=== PATIENT | female | born 1975 | race Caucasian/White ===

== ENCOUNTER 2016-05-19 05:29 | Observation (INO) | payer OTHER ==
[~2016-05-19] VITALS: Ht 149.9 cm; Wt 47.2 kg
[~2016-05-19 05:29] MED LIST: AMIT10TA6 PO; CETI10 PO; CHOL1CAP8 PO; DICY10CA12 PO; MULT-135 PO; OMEP20TA PO; VARE1 PO
[2016-05-19] MEDS ORDERED: SODIUM CHLORID 0.9% 500 ML IV SCH (06:00)
[2016-05-19] MEDS ORDERED: METOPROLOL TARTRATE 25 MG TAB PO PRN (06:00)
[2016-05-19] MEDS ORDERED: INSULIN HUMAN REGULAR 1,000 UNITS/10 ML VIAL SQ PRN (06:00)
[2016-05-19] MEDS ORDERED: LACTATED RINGER'S 1000 ML IV SCH (06:00)
[2016-05-19] MEDS ORDERED: ceFAZolin 2 GM PREMIX 50 ML IV SCH (06:15)
[2016-05-19 06:25] VITALS: BP 110/67; PULSE 77; RESP 16; TEMP 97.9; O2SAT 100
--- NOTE | 2016-05-19 06:28 | MH ---
cc: ETHEL NICOLE DATE OF ADMISSION: 05/19/2016 DATE OF 1975 DATE OF SURGERY Scheduled for 05/19/2016 HISTORY AND PHYSICAL This is a 41-year-old white female who is a 5, para 3 who has had vaginal births and C-sections. The patient is scheduled for a laparoscopic-assisted vaginal hysterectomy with bilateral salpingectomy and removal of one or both ovaries. The patient has pelvic congestion syndrome and will have her ovary removed to try to minimize her remaining pelvic congestion. The patient is aware of the risks, benefits and alternatives. She understands that if both ovaries are removed she will be menopausal, so our goal would be to remove one ovary unless necessary. The patient had a history of a LEEP and abnormal Pap smear, will need a cervix removed during this case. The patient is aware of that. The patient's COB SAWYER history is significant for an abnormal Pap smears in 2015. OBSTETRICAL HISTORY She has had five pregnancies with two full-term and one delivery. She had a in 2004 and 2005 and one vaginal . MEDICATIONS Omeprazole 20 milligrams daily. Amitriptyline 10 milligrams daily Dicyclomine 10 milligrams daily. ALLERGIES ALLERGIES TO MORPHINE, CAUSES VOMITING AND HIVES. SOCIAL HISTORY She does not smoke, drink or use drugs. PHYSICAL EXAMINATION VITAL SIGNS: Stable and afebrile. NECK: Thyroid palpably normally. HEART: Regular rate and rhythm without murmur or gallop. LUNGS: Clear to auscultation bilaterally. ABDOMEN: Soft, nontender, nondistended. Nongravid uterus, 7-week size. : Urethra and anus appeared normal. LOWER EXTREMITIES: No edema. IMPRESSION/PLAN Our impression at this time is pelvic congestion syndrome with severe pelvic pain. The patient will undergo a LAVH, bilateral salpingectomy and removal of one or both ovaries. The patient fully consented. MD SCARLETT Verma/GLENDA /7:40 PM 6:27 AM
[2016-05-19 06:56] LABS: AUTOMATED NEUTROPHIL # 5.7 TH/MM3 (1.8-7.7); BASOPHIL % 0.5 % (0.0-2.0); EOSINOPHIL # 0.2 TH/MM3 (0-0.4); EOSINOPHIL % 2.1 % (0.0-4.0); HEMO FLAGS DIFF FINAL; LYMPH % 17.2 % (9.0-44.0); LYMPHOCYTE # 1.3 TH/MM3 (1.0-4.8); MEAN CELL VOLUME 92.6 FL (80.0-100.0); MEAN CORPUSCULAR HEMOGLOBIN 32.2 PG (27.0-34.0); MEAN CORPUSCULAR HGB CONC 34.8 % (32.0-36.0); MONO % 6.5 % (0.0-8.0); NEUT % 73.7 % (16.0-70.0); PLATELET COUNT 156 TH/MM3 (150-450); RED BLOOD COUNT 3.88 MIL/MM3 (4.00-5.30); RED CELL DISTRIBUTION WIDTH 12.9 % (11.6-17.2); WHITE BLOOD COUNT 7.8 TH/MM3 (4.0-11.0)
[2016-05-19] MEDS ORDERED: METHYLENE BLUE 10 MG/ML VIAL ONE (07:00)
[2016-05-19] MEDS ORDERED: LIDOCAINE 1%/EPINEPHrine 1:100,000 SOLN 30 ML VIAL ONE (07:00)
[2016-05-19] MEDS ORDERED: APREPITANT 40 MG CAP PO ONE (07:15)
[2016-05-19] MEDS ORDERED: FAMOTIDINE 20 MG/2 ML VIAL IV ONE (07:15)
[2016-05-19] MEDS ORDERED: MIDAZOLAM HCL 2 MG/2 ML VIAL IV ONE (07:15)
[2016-05-19 07:21] LABS: BETA HCG QUANT LESS THAN 1 MIU/ML (0-5)
[2016-05-19] MEDS ORDERED: DO NOT ADM ANY ANTICOAGULANT DRUGS XX PRN (09:45)
[2016-05-19] MEDS ORDERED: SODIUM CHLORIDE 0.9% FLUSH 5 ML FLUSH FLUSH PRN (10:00)
[2016-05-19] MEDS ORDERED: diphenhydrAMINE HCL 25 MG CAP PO PRN (10:00)
[2016-05-19] MEDS ORDERED: oxyCODONE/ACETAMINOPHEN 5 MG/325 MG TAB PO PRN ×2 (10:00)
[2016-05-19] MEDS ORDERED: HYDROmorphone HCL PF 1 MG/ML VIAL IVP PRN (10:00)
--- NOTE | 2016-05-19 10:00 | PD.OP ---
Operative Report Date of Surgery: May 19, 2016 Preoperative Diagnosis: (1) Pelvic congestion syndrome Postoperative Diagnosis: (1) Pelvic congestion syndrome Procedure: LAVH RSO and left salpingectomy Anesthesia: general Juarez Surgeon: Popeye Melo Mercerizing Range Controller(s): Popeye Peterson MD May 19, 2016 10:00
[2016-05-19] MEDS ORDERED: *HYDROmorphone PF 1 MG VIAL PERIprocedural Use ONLY ONE ×2 (10:05→10:37)
[2016-05-19] MEDS ORDERED: fentaNYL CITRATE 250 MCG/5 ML AMP IV ONE (12:00)
[2016-05-19] MEDS ORDERED: KETOROLAC TROMETHAMINE 30 MG/ML (IVP) VIAL IV PUSH ONE (12:00)
[2016-05-19] MEDS ORDERED: LACTATED RINGER'S 1000 ML INJ 1,000 ML IV ONE (12:00)
[2016-05-19] MEDS ORDERED: ACETAMINOPHEN 1000 MG/100 ML VIAL IV ONE (12:00)
[2016-05-19] MEDS ORDERED: NEOSTIGMINE 3 MG/3 ML SYR IV ONE (12:00)
[2016-05-19] MEDS ORDERED: ONDANSETRON HCL 4 MG/2 ML VIAL IV PUSH ONE (12:00)
[2016-05-19] MEDS ORDERED: PROPOFOL 200 MG/20 ML AMP IV ONE (12:00)
[2016-05-19] MEDS ORDERED: *ONDANSETRON 4 MG VIAL PERIprocedural Use ONLY ONE (12:06)
[2016-05-19] MEDS: ONDANSETRON HCL 4 MG/2 ML VIAL IVP PRN ×2 (13:34→18:59)
[2016-05-19 16:47] VITALS: BP 102/64; PULSE 81; RESP 18; TEMP 97.1; O2SAT 95
[2016-05-19] MEDS: KETOROLAC TROMETHAMINE 30 MG/ML (IVP) VIAL IVP PRN (19:45)
[2016-05-19 20:00] VITALS: BP_SYST 105; BP_DIAS 57; BP_DIAS 61; PULSE 96; RESP 16; TEMP 98; O2SAT 97; O2SAT 98
[2016-05-19] MEDS ORDERED: SODIUM CHLORIDE 0.9% FLUSH 5 ML FLUSH FLUSH SCH (21:00)
--- NOTE | 2016-05-19 22:12 | MP ---
cc: ETHEL MELO DATE OF SURGERY 05/19/2016 PROCEDURE Laparoscopic-assisted vaginal hysterectomy with a left salpingo-oophorectomy and a right salpingectomy. PREOPERATIVE DIAGNOSIS Pelvic congestion syndrome. POSTOPERATIVE DIAGNOSIS Pelvic congestion syndrome including endometriosis and adenomyosis SURGEON Dr. Ryan Melo ANESTHESIA General, Dr. Juarez COMPLICATIONS None. ESTIMATED BLOOD LOSS 250 PROCEDURE IN DETAIL The patient was taken to her operating room, placed under general anesthesia. After informed consent, time-out was taken for the procedure. Everybody agreed with the procedure. After the patient was prepped, draped in normal sterile fashion, Gotti catheter was then placed to gravity. A speculum was placed in the vagina. Cervix was grasped with a single-tooth tenaculum. An acorn uterine manipulator was placed into the cervix. At this point, gloves were changed and a 5 mm infraumbilical incision was made after injection with 0.25% Marcaine with epinephrine. We entered the abdomen under direct visualization. Her left and right lower quadrant trocars were placed without difficulty. A survey of the upper and lower abdomen revealed no abnormalities except some endometriosis in the posterior cul-de-sac which was ablated with a Harmonic scalpel. We then proceeded to remove the left ovary which seemed to have some scarring from endometriosis on it and it was adherent to the pelvic sidewall. This was pulled off the pelvic sidewall. The infundibulopelvic ligament was ligated with a Harmonic scalpel. We progressed down and removed the ovary and the fallopian tube on that side at the level of the round ligament. We came across the round ligament and down dissected the bladder off the cervix with scar tissue noted because of the C-sections previously. The right side was done where we only removed the fallopian tube. Ovary remained healthy. It was the right ovary that was left intact. We dissected the broad ligament and down to the level of the uterine arteries dissecting the bladder off the lower uterine segment and cervix. Then we cauterized the uterine arteries. Once the uterine arteries were cauterized, we went below where the vaginal portion was performed. We then dissected the vaginal portion by grabbing the cervix with a single tooth tenaculum incising anteriorly. We dissected the bladder off the cervix entering the anterior cul-de-sac where our incision from above was made. I entered the posterior cul-de-sac using Jose Martin clamps, clamped, cut and tied the uterosacral and cardinal ligaments. The uterus was amputated and removed from the field. Good hemostasis was achieved. The vaginal cuff was run with a running locking stitch posteriorly and then the vaginal cuff was closed with multiple [id number] sutures. Good hemostasis was achieved. The patient tolerated the procedure well. She was taken to recovery room in stable condition. We had looked above at the end of the case and everything was hemostatic. The pelvis was irrigated well. Simple stitches were placed at 35 mm trocars in her abdomen. MD SCARLETT Verma/ /9:26 AM /10:02 PM
[2016-05-20] VITALS: BP 105/59; PULSE 78; RESP 16; TEMP 98.2; O2SAT 98
[2016-05-20] MEDS: IBUPROFEN 600 MG TAB PO PRN ×2 (00:06→12:28)
[2016-05-20 04:00] VITALS: BP 99/64; PULSE 95; RESP 16; TEMP 98.1; O2SAT 98
[2016-05-20] MEDS: KETOROLAC TROMETHAMINE 30 MG/ML (IVP) VIAL IVP PRN (04:03)
--- NOTE | 2016-05-20 07:48 | HHI.PR ---
Subjective Remarks Doing well, pain is fairly controlled, eating crackers. Objective Vital Signs Vital Signs Date Time Temp Pulse Resp B/P Pulse Ox O2 Delivery O2 Flow Rate FiO2 05/20/16 04:00 98.1 95 16 99/64 98 05/20/16 00:00 98.2 78 16 105/59 98 05/19/16 20:00 98.0 96 16 105/57 98 05/19/16 20:00 98.0 96 16 105/61 97 05/19/16 16:47 97.1 81 18 102/64 95 05/19/16 12:15 97.6 82 16 120/69 96 Room Air 05/19/16 11:00 75 16 113/61 95 Room Air 05/19/16 10:45 65 15 114/63 95 Room Air 05/19/16 10:30 97.6 59 15 115/65 94 Room Air 05/19/16 10:15 58 15 113/60 99 Nasal Cannula 2 05/19/16 10:00 63 15 112/62 98 Nasal Cannula 2 05/19/16 09:45 70 15 118/60 98 Nasal Cannula 2 05/19/16 09:40 97.8 81 17 133/64 98 Nasal Cannula 2 I/O 05/19/16 05/19/16 05/19/16 05/20/16 05/20/16 05/20/16 07:00 15:00 23:00 07:00 15:00 23:00 Intake Total 1500 ml 1030 ml 250 ml Output Total 1025 ml 1200 ml 800 ml 1000 ml Balance 475 ml -170 ml -800 ml -750 ml Intake Oral 1030 ml 250 ml IV Total 100 ml Other 1400 ml Output Urine Total 775 ml 1200 ml 800 ml 1000 ml Estimated Blood Loss 250 ml # Bowel Movements 0 0 Result Diagram: 05/19/16 0625 Objective Remarks Chest is clear, regular rate and rhythm. Abdomen is soft and non-distended. Incision is clean and dry. Ext no CCE. A/P Assessment and Plan Post Op Day 1 Doing well Home today and return to office in two weeks. Popeye Melo MD May 20, 2016 07:48
[2016-05-20] MEDS ORDERED: NORC5TAB PO (07:50)
--- NOTE | 2016-05-20 07:52 | HHI.DCPOC ---
Discharge Care Plan Diagnosis: (1) Pelvic congestion syndrome Report Symptoms to Your Doctor -Temperate above 100.5 degrees -Redness, of incision or excessive or foul smelling drainage -Unusual pain or calf pain -Increased vaginal bleeding -Painful or difficulty urinating -Feelings of extreme sadness or anxiety after 2 weeks Goals to Promote Your Health * To prevent worsening of your condition and complications * To maintain your health at the optimal level Directions to Meet Your Goals Take your medications as prescribed Follow your dietary instruction Follow activity as directed Ensure plenty of rest for recovery Drink fluids for hydration Keep your appointments as scheduled Take your immunizations and boosters as scheduled If your symptoms worsen call your PCP, if no PCP go to Urgent Care Center or Emergency Room Smoking is Dangerous to Your Health. Avoid second hand smoke Call the 24-hour crisis hotline for domestic abuse at Popeye Melo MD May 20, 2016 07:52
[2016-05-20 08:00] VITALS: BP 102/71; PULSE 84; RESP 16; TEMP 97.8; O2SAT 94
--- NOTE | 2016-05-20 08:01 | HHI.DS ---
Admission Date May 19, 2016 at 10:11 Discharge Date: May 20, 2016 Admitting Diagnosis Diagnosis: (1) Pelvic congestion syndrome Diagnosis: Principal Brief History doing well came for [facility] Hospital Course Patient has had LAVH and is doing well dc home follow up 2 weeks Pt Condition on Discharge: Good Discharge Disposition: Discharge Home Discharge Instructions Diet Instructions: As Tolerated, No Restrictions Activities You Can Perform: Pelvic Rest Activities to Avoid: Driving for 24 hrs Follow up Referrals: [facility] - 2 Weeks @ [facility] with Popeye Melo MD New Medications: Hydrocodone-Acetaminophen (Prosperity) 5-325 mg Tab 1 TAB PO Q4H PRN PAIN #30 Ref 0 TAB Continued Medications: Amitriptyline (Amitriptyline) 10 Mg Tab 10 MG PO HS Control Depression #30 Ref 0 TAB Cetirizine (Cetirizine) 10 Mg Tab 10 MG PO DAILY Allergies Ref 0 TAB Cholecalciferol (Vitamin D3) 400 Unit Cap 400 UNITS PO DAILY Nutritional Supplement #1 Ref 0 BOTTLE Dicyclomine (Dicyclomine) 10 Mg Cap 10 MG PO BID Bowel Management Ref 0 CAP Multiple Vitamin (Multi Vitamin) 1 Tab Tab 1 TAB PO DAILY TAB Omeprazole (Omeprazole) 20 Mg Tab 20 MG PO DAILY #30 Ref 0 TAB Varenicline (Chantix) 1 Mg Tab 1 MG PO BIDPC Smoking cessation #60 Ref 0 TAB Popeye Melo MD May 20, 2016 08:01
[2016-05-20 08:37] LABS: AUTOMATED NEUTROPHIL # 6.8 TH/MM3 (1.8-7.7); BASOPHIL % 0.2 % (0.0-2.0); EOSINOPHIL # 0.1 TH/MM3 (0-0.4); HEMATOCRIT 25.8 % (35.0-46.0); HEMO FLAGS DIFF FINAL; LYMPHOCYTE # 1.4 TH/MM3 (1.0-4.8); MEAN CELL VOLUME 92.3 FL (80.0-100.0); MEAN CORPUSCULAR HEMOGLOBIN 32.9 PG (27.0-34.0); MEAN CORPUSCULAR HGB CONC 35.7 % (32.0-36.0); MONO % 6.3 % (0.0-8.0); NEUT % 76.5 % (16.0-70.0); PLATELET COUNT 121 TH/MM3 (150-450); RED CELL DISTRIBUTION WIDTH 12.9 % (11.6-17.2); WHITE BLOOD COUNT 8.9 TH/MM3 (4.0-11.0)
== END 2016-05-20 12:28 | disposition home or self-care (01) ==
LOC: HSDC 05:29 → HSDI 10:11 → HOCB 12:20
PROVIDERS: ADMIT Obstetrics & Gynecology; ATTEND Obstetrics & Gynecology
DX: N80.0 Endometriosis of uterus (principal); N94.89 Other specified conditions associated with female genital organs and menstrual cycle; N88.8 Other specified noninflammatory disorders of cervix uteri; K21.9 Gastro-esophageal reflux disease without esophagitis; F17.200 Nicotine dependence, unspecified, uncomplicated
CPT/HCPCS: 00840; 58552; 84702; 85025; 86850; 86900; 86901; 88307; G0378; J0131; J0690; J1170; J1885; J2405; J2710; J3010; J7120; J2250; J8501

== ENCOUNTER → 2016-06-03 | Outpatient (CLI) | payer OTHER ==
[~2016-06-03] MED LIST changes: +NORC5TAB PO
--- NOTE | 2016-07-07 10:30 | RSPPFT ---
DATE OF PROCEDURE: 06/03/16 COMMENTS: Spirometry with FVC of 3.0 predicted 2.9, FEV1 of 2.4 predicted 2.3. Lung volumes are within the predicted range. DLCO is 71% of predicted. IMPRESSION: On the basis of the above, patient has flow values, lung volumes and DLCO within the predicted range.
== END ==
LOC: HRSP 07:59
PROVIDERS: ATTEND Internal Medicine Pulmonary Disease
DX: R91.1 Solitary pulmonary nodule (principal); Z87.891 Personal history of nicotine dependence
CPT/HCPCS: 94060; 94620; 94726; 94729